=== PATIENT | female | born 1945 | race Caucasian/White ===

== ENCOUNTER 2020-10-26 08:57 | Emergency (ER) | payer MEDICARE ==
[~2020-10-26] VITALS: Ht 170.2 cm; Wt 76.3 kg
[2020-10-26] MEDS ORDERED: LEVOTHYROXINE75 MCG PO (09:27)
[2020-10-26] MEDS ORDERED: BENAZEPRIL HCL10 MG PO (09:27)
[2020-10-26] MEDS ORDERED: PATADAY2.5 ML (09:27)
[2020-10-26] MEDS ORDERED: ASPIRIN EC81 MG PO (09:27)
[2020-10-26] MEDS ORDERED: PRAVACHOL20 MG PO (09:27)
[2020-10-26] MEDS ORDERED: PRESERVISION T1 EACH (09:27)
[2020-10-26] MEDS ORDERED: ALENDRONATE SOD10 MG (09:27)
[2020-10-26] MEDS ORDERED: CENTRUM SILVER1 EAC5 (09:27)
[2020-10-26] MEDS ORDERED: BETAMETHASONE D30 ML (09:27)
[2020-10-26] MEDS ORDERED: HYDROCHLOROTH12.5 MG (09:27)
[2020-10-26] MEDS ORDERED: ARMOUR THYROID60 MG PO (09:27)
[2020-10-26] MEDS ORDERED: FAMOTIDINE 20 MG/2 ML VIAL IV STA (09:37)
[2020-10-26] MEDS ORDERED: IOPAMIDOL 370 MG/ML 200 ML INFUS..BTL INJ ONE (09:47)
[2020-10-26] MEDS ORDERED: SODIUM CHLORIDE 0.9% 50ML 50 ML ONE (09:47)
[2020-10-26] MEDS ORDERED: PANTOPRAZOLE SO40 MG PO (11:25)
[2020-10-26] MEDS ORDERED: FAMOTIDINE20 MG PO (11:26)
[2020-10-26] MEDS ORDERED: CIPRO500 MG PO (11:27)
[2020-10-26] MEDS ORDERED: FLAGYL500 MG PO (11:28)
[2020-10-26 11:54] VITALS: BP 124/71
== END 2020-10-26 11:50 | disposition home or self-care (01) ==
LOC: FSED 09:15
DX: R10.12 Left upper quadrant pain (principal); K29.70 Gastritis, unspecified, without bleeding; K57.32 Diverticulitis of large intestine without perforation or abscess without bleeding; R91.8 Other nonspecific abnormal finding of lung field; I10 Essential (primary) hypertension; E78.5 Hyperlipidemia, unspecified; E03.9 Hypothyroidism, unspecified
CPT/HCPCS: 74177; 80048; 80076; 81003; 85025; 96374; 99284; Q9967

== ENCOUNTER 2020-11-27 09:16 | Emergency (ER) | payer MEDICARE ==
[~2020-11-27] VITALS: Ht 170.2 cm; Wt 76.2 kg
[~2020-11-27 09:16] MED LIST: ALENDRONATE SOD10 MG; ARMOUR THYROID60 MG PO; ASPIRIN EC81 MG PO; BENAZEPRIL HCL10 MG PO; BETAMETHASONE D30 ML; CENTRUM SILVER1 EAC5; CIPRO500 MG PO; FAMOTIDINE20 MG PO; FLAGYL500 MG PO; HYDROCHLOROTH12.5 MG; LEVOTHYROXINE75 MCG PO; PANTOPRAZOLE SO40 MG PO; PATADAY2.5 ML; PRAVACHOL20 MG PO; PRESERVISION T1 EACH
[2020-11-27] MEDS ORDERED: FAMOTIDINE20 MG PO (11:56)
[2020-11-27] MEDS ORDERED: ACIPHEX20 MG PO (12:00)
[2020-11-27] MEDS ORDERED: AZITHROMYCIN250 MG PO (12:04)
[2020-11-27] MEDS ORDERED: DECADRON6 MG PO (12:09)
[2020-11-27 12:21] VITALS: BP 167/91
== END 2020-11-27 12:21 | disposition home or self-care (01) ==
LOC: FSED 09:20
DX: J18.9 Pneumonia, unspecified organism (principal); R49.0 Dysphonia; K29.70 Gastritis, unspecified, without bleeding; I10 Essential (primary) hypertension; E78.5 Hyperlipidemia, unspecified; E03.9 Hypothyroidism, unspecified; Z20.822 Contact with and (suspected) exposure to COVID-19
CPT/HCPCS: 71250; 80048; 80053; 81003; 85025; 99284; U0002